=== PATIENT | male | born 1950 | race Two or more races ===

== ENCOUNTER 2020-03-19 09:56 | Day surgery (SDC) | payer MEDICARE ==
[2020-03-19] VITALS (8 sets, daily range): BP systolic 91–137; BP diastolic 60–83
[~2020-03-19] VITALS: Ht 167.6 cm; Wt 63.5 kg
[2020-03-19] MEDS ORDERED: LR 1000ml ONE (09:57)
[2020-03-19] MEDS ORDERED: Lidocaine 1% MPF 10mg/ml 5ml ONE (09:57)
[2020-03-19] MEDS ORDERED: FISH OIL CAP1000 MG ORAL (10:31)
[2020-03-19] MEDS ORDERED: CALCIUM500 M3 PO (10:31)
[2020-03-19] MEDS ORDERED: ASPIRIN81 MG ORAL (10:31)
[2020-03-19] MEDS ORDERED: BENICAR5 MG ORAL (10:31)
[2020-03-19] MEDS ORDERED: PRAVASTATIN SOD10 M1 ORAL (10:31)
--- NOTE | 2020-03-19 11:17 | Anethesia Preoperative Eval ---
Anesthesia Pre-op PMH/ROS General Date of Evaluation: Mar 19, 2020 Anesthesiologist: Stephen ASA Score: ASA 2 Mallampati Score Class I : Soft palate, uvula, fauces, pillars visible Class II: Soft palate, uvula, fauces visible Class III: Soft palate, base of uvula visible Class IV: Only hard plate visible Mallampati Classification: Class II Surgeon: Aries Diagnosis: Screening Surgical Procedure: Colonoscopy Anesthesia History: none Family History: no anesthesia problems Allergies: Coded Allergies: No Known Allergies (Unverified , 03/19/20) Medications: see eMAR Patient NPO?: Yes NPO Date: Mar 19, 2020 NPO Time: 00:00 Past Medical History Cardiovascular: Reports: HTN, other - HLD; Denies: CAD, KS, valve dz, arrhythmia Pulmonary: Denies: asthma, COPD, MAYLIN, other Gastrointestinal/Genitourinary: Denies: GERD, CRI, ESRD, other Neurologic/Psychiatric: Denies: dementia, CVA, depression/anxiety, TIA, other Endocrine: Denies: DM, hypothyroidism, steroids, other HEENT: Denies: cataract (L), cataract (R), glaucoma, [place] (L), [place] (R), other Hematology/Immune: Denies: anemia, DVT, bleeding disorder, other Musculoskeletal/Integumentary: Denies: OA, RA, DJD, DDD, edema, other PSxH Narrative: septoplasty Anesthesia Pre-op Phys. Exam Physician Exam Last Vital Signs Date Time Temp Pulse Resp B/P (MAP) Pulse Ox O2 Delivery O2 Flow Rate FiO2 03/19/20 10:19 Room Air Constitutional: NAD Cardiovascular: RRR Respiratory: CTA Airway Exam Mallampati Score: Class II MO: full ROM: full Anesthesia Pre-op A/P Labs see chart Studies Pre-op Studies: EKG - sr Risk Assessment & Plan Assessment: ASA II Plan: MAC Status Change Before Surgery: No Pre-Antibiotics Drug: Ilda Parra MD Mar 19, 2020 11:17
--- NOTE | 2020-03-19 12:50 | Pre-Procedure Note/Attestation ---
Pre-Procedure Note/Attestation Complete Prior to Procedure Planned Procedure: not applicable Procedure Narrative: colonoscopy Indications for Procedure Pre-Operative Diagnosis: screening Attestation I attest that I discussed the nature of the procedure; its benefits; risks and complications; and alternatives (and the risks and benefits of such alternatives), prior to the procedure, with the patient (or the patient's legal primary care sales representative). I attest that, if there was a reasonable possibility of needing a blood tra nsfusion, the patient (or the patient's legal primary care sales representative) was given the [facility] standardized written summary, pursuant to the Ricardo Disney Blood Safety Act ([place] Health and Safety Code # 1645, as amended). I attest that I re-evaluated the patient just prior to the surgery and that there has been no change in the patient's H&P, except as documented below: Wing Chris MD Mar 19, 2020 12:49
--- NOTE | 2020-03-19 13:03 | Short Stay Surgery H&P ---
History of Present Illness History of Present Illness Chief Complaint screening HPI Yonny Wall is a 69 year old male who was admitted on for Colon Screening Patient History Allergies: Coded Allergies: No Known Allergies (Unverified , 03/19/20) PAST MEDICAL HISTORY: (1) HTN (hypertension) (2) Hypercholesteremia Medication History Scheduled Aspirin* (Aspirin*), 81 MG ORAL DAILY, (Reported) Calcium Carbonate (Calcium), 500 MG PO DAILY, (Reported) Fish Oil (Fish Oil 1,000 mg Capsule), 1,000 MG ORAL DAILY, (Reported) Olmesartan Medoxomil (Benicar), 5 MG ORAL DAILY, (Reported) Pravastatin Sod (Pravastatin Sod), 10 MG ORAL BEDTIME, (Reported) Review of Systems Cardiovascular: Reports: no symptoms Respiratory: Reports: no symptoms Skeletal: Reports: no symptoms Gastrointestinal: Reports: no symptoms Genitourinary: Reports: no symptoms Neurologic: Reports: no symptoms Endocrine: Reports: no symptoms Hematologic: Reports: no symptoms Physical Exam Vital Signs Last Vital Signs Date Time Temp Pulse Resp B/P (MAP) Pulse Ox O2 Delivery O2 Flow Rate FiO2 03/19/20 10:19 Room Air Skin: normal HENT: normal Heart: normal Lungs: normal Abdomen: normal Extremities: normal Plan Plan of Care colonoscopy Attestation Are the patient's medical conditions optimized for surgery? Attestation Response: yes Wing Chris MD Mar 19, 2020 13:03
--- NOTE | 2020-03-19 13:06 | Endoscopy Procedure Note ---
Endoscopy Procedure Note General Indication for Procedure: screening Procedures Performed: colonoscopy Operative Findings/Diagnosis: diverticulosis Specimen: none Pt Tolerated Procedure Well: Yes Estimated Blood Loss: none Anesthesia Anesthesiologist: saul Anesthesia: MAC Inserted Devices Implant(s) used?: No Quality Quality of Bowel Preparation: Excellent Did scope reach the cecum?: Yes Was there any complications?: No GI Core Measures 50 yrs or older w/o bx or poly: No 10yrs. F/U recommended: Yes If not recommended, why?: Above average risk 18 years or older w/prev. colo: No Wing Chris MD Mar 19, 2020 13:06
--- NOTE | 2020-03-19 13:15 | Immediate Post-Op Evaluation ---
Immediate Post-Op Evalulation Immediate Post-Op Evalulation Procedure: Colonoscopy Date of Evaluation: Mar 19, 2020 Time of Evaluation: 13:15 IV Fluids: 400 Blood Products: 0 Estimated Blood Loss: 0 Urinary Output: 0 Blood Pressure Systolic: 91 Blood Pressure Diastolic: 60 Pulse Rate: 76 Respiratory Rate: 16 O2 Sat by Pulse Oximetry: 100 Temperature (Fahrenheit): 97.2 Pain Score (1-10): 0 Nausea: No Vomiting: No Complications 0 Patient Status: awake, reacts, patent, none Hydration Status: adequate Drug: N/A Ilda Mitchell MD Mar 19, 2020 13:15
--- NOTE | 2020-03-19 13:16 | 48 Hour Post Anesthesia Eval ---
Post Anesthesia Evaluation Procedure: Colonoscopy Date of Evaluation: Mar 19, 2020 Airway: patent Nausea: No Vomiting: No Pain Intensity: 0 Hydration Status: adequate Cardiopulmonary Status: at basleine Mental Status/LOC: patient returned to baseline Post-Anesthesia Complications: 0 Follow-up care needed: ready to discharge Ilda Mitchell MD Mar 19, 2020 13:16
--- NOTE | 2020-03-24 04:11 | Cardiology Report ---
APPROVED REPORT EKG Measurement Heart [id number] <Conclusion> Normal sinus rhythm Left axis deviation Pulmonary disease pattern Abnormal ECG
--- NOTE | 2020-03-29 09:45 | Procedure Note ---
DATE OF PROCEDURE: 03/19/2020 SURGEON: Wing Chris MD PROCEDURE: Colonoscopy. ANESTHESIA: Per anesthesiologist. Please see anesthesia sheet. INSTRUMENT: Olympus adult flexible colonoscope. INDICATION: 1. Screening colonoscopy evaluation. 2. Prior history of colonic polyps. The procedure, risks, benefits, and possible consequences, including hemorrhage, aspiration, perforation and infection, and alternative treatments, were explained to the patient/legal guardian by Dr. Wing Chris and the patient/legal guardian understood and accepted these risks. DESCRIPTION OF PROCEDURE: After informed consent was obtained and the patient was adequately sedated, first rectal exam was performed, which was positive for internal hemorrhoids. Then, the scope was advanced from the rectum into the cecum and then subsequently terminal ileum. Quality of prep was very good. The patient had no polyps seen in this examination. There was evidence of diverticulosis, mild to moderate in the left colon. Retroflexion of rectum was performed, which showed evidence of internal hemorrhoids. SUMMARY OF FINDINGS: 1. Left-sided diverticulosis, mild to moderate. 2. Internal hemorrhoids. RECOMMENDATIONS: Repeat colonoscopy in 5 years. Treat for hemorrhoids if they become symptomatic. Wing Chris M.D. DR: Tyrone JOB#: [id number] CC: BRIAN
== END 2020-03-19 14:10 | disposition home or self-care (01) ==
LOC: GAS 09:56
DX: Z12.11 Encounter for screening for malignant neoplasm of colon (principal); K57.90 Diverticulosis of intestine, part unspecified, without perforation or abscess without bleeding; K64.8 Other hemorrhoids; Z86.010 Personal history of colon polyps; I10 Essential (primary) hypertension; E78.5 Hyperlipidemia, unspecified; E78.00 Pure hypercholesterolemia, unspecified; Z79.82 Long term (current) use of aspirin; Z79.899 Other long term (current) drug therapy
CPT/HCPCS: 93005; 94003; G0105; J2704; J7120; U0002; 94150